=== PATIENT | female | born 1990 | race Caucasian/White ===

== ENCOUNTER 2023-01-17 12:25 | Outpatient (CLI) | payer OTHER, SELFPAY | END 2023-01-17 12:26 | disposition home or self-care (01) | LOC: NFLDREF 22:10 | PROVIDERS: PCP Emergency Medicine; Referring Provider Emergency Medicine; Visit Provider Emergency Medicine | DX: E78.49 Other hyperlipidemia (principal); Z12.4 Encounter for screening for malignant neoplasm of cervix; Z13.1 Encounter for screening for diabetes mellitus; F41.9 Anxiety disorder, unspecified | CPT/HCPCS: 80061; 82947; 84443 ==